=== PATIENT | female | born 1935 | race Caucasian/White ===

== ENCOUNTER 2017-07-21 13:09 | Emergency (ER) ==
[2017-07-21] MEDS ORDERED: SODIUM CHLORIDE 1,000 ML IV STA ×2 (13:19→15:08)
[2017-07-21] MEDS ORDERED: ZOFRAN 4 MG/2 ML IVP STA (13:20)
[2017-07-21] MEDS ORDERED: MORPHINE 2 MG/ML SYRINGE IVP STA (13:28)
[2017-07-21 13:41] VITALS: BP 111/79; TEMP 99.2; BMI 25.4
--- NOTE | 2017-07-21 14:11 | CT ---
EXAM: CT scan abdomen pelvis without contrast HISTORY: Abdominal COMPARISON: CT scan abdomen pelvis 12/11/2014 FINDINGS: The contiguous axial images obtained through the abdomen pelvis without contrast utilizing 3-mm collimation. Sagittal and coronal reconstructions were imaged and reviewed.. The visualized l forrest bases are clear. There has been prior cholecystectomy. The liver, pancreas, spleen and adrenal glands have normal unenhanced CT appearance. The kidneys morphologically normal. Atherosclerotic ch anges are seen involving the aorta without aneurysm formation.. There is diverticulosis without dive rticulitis. There has been prior hysterectomy. There is no free fluid or inflammatory changes. The IMPRESSION: Status post cholecystectomy hysterectomy. ASVD without aneurysm. No evidence of free fluid or inflammatory changes.
--- NOTE | 2017-07-21 16:15 | ED.PDOC ---
General ED Provider: Dr. FRANKY MAJOR-ER Chief Complaint: Nausea/Vomiting Stated Complaint: shes had nonbloody diarrhea and vomiting Time Seen by Physician: 13:30 Mode of Arrival: Walk-In Information Source: Patient, Other Exam Limitations: Other (speech from cva) Primary Care Provider: FRANKY MAJOR Nursing and Triage Documentation Reviewed and Agree: Yes Reviewed sepsis parameters & appropriate labs ordered?: Yes System Inflammatory Response Syndrome: Not Applicable Sepsis Protocol: For patient's 13 years and over: Temp is 96.8 and below OR 101 and greater Pulse >90 BPM Resp >20/minute Acutely Altered Mental Status Are patient's symptoms suggestive of a new infection, such as: -Pneumonia -Skin, Soft Tissue -Endocarditis -UTI -Bone, Joint Infection -Implantable Device -Acute Abdominal Infection -Wound Infection -Meningitis -Blood Stream Catheter Infection -Unknown GI Complaint Exam - Vomiting/Diarrhea Complaint/Exam Onset/Duration: several hours Symptoms Are: Still present Initial Severity: Mild Current Severity: Mild Character of Vomiting: Reports: Non-bilious Character of Diarrhea: Reports: Watery Aggravating: Reports: None Alleviating: Reports: None Associated Signs and Symptoms: Denies: Dizziness, Light-headedness, Melena, Hematemesis, Fever, Abdominal pain, Cramping Kussmaul Respirations Present: No Differential Diagnoses: Bowel Obstruction, Dehydration, Viral Gastroenteritis, Bacterial Gastroenteritis, UTI Review of Systems - Review Of Systems Constitutional: Reports: No symptoms Eyes: Reports: No symptoms Ears, Nose, Mouth, Throat: Reports: No symptoms Respiratory: Reports: No symptoms Cardiac: Reports: No symptoms GI: Reports: Diarrhea, Nausea, Vomiting : Reports: No symptoms Musculoskeletal: Reports: No symptoms Skin: Reports: No symptoms Neurological: Reports: No symptoms Endocrine: Reports: No symptoms Hematologic/Lymphatic: Reports: No symptoms All Other Systems: Reviewed and Negative Past Medical History - Past Medical History Previously Healthy: No Endocrine: Reports: None Cardiovascular: Reports: None Respiratory: Reports: Unknown Hematological: Reports: Unknown Gastrointestinal: Reports: None Genitourinary: Reports: Unknown Neuro/Psych: Reports: CVA Musculoskeletal: Reports: None Cancer: Reports: Unknown Last Menstrual Period: N/A - Surgical History General Surgical History: Reports: Unknown - Family History Family History: Reports: Unknown - Social History Smoking Status: Former smoker Hx Substance Use: No Alcohol Screening: None Physical Exam - Physical Exam Appearance: Well-appearing, No pain distress, Well-nourished Eyes: KATLYN, EOMI, Conjunctiva clear ENT: Ears normal, Nose normal, Oropharynx normal Neck: Supple Respiratory: Airway patent, Breath sounds clear, Breath sounds equal, Respirations nonlabored Cardiovascular: RRR, Pulses normal, No rub, No murmur GI/: Soft, Nontender, No masses, Bowel sounds normal, No Organomegaly Musculoskeletal: Normal strength, ROM intact, No edema, No calf tenderness Skin: Warm, Dry, Normal color Neurological: Sensation intact, Motor intact, Reflexes intact, Cranial nerves intact, Alert, Oriented Psychiatric: Affect appropriate, Mood appropriate Interpretation - Radiology Interpretation Radiology Interpretation By: Radiologist Radiology Results: Negative Exam Interpreted: CT Scan Re-Evaluation - Re-Evaluation Time of Re-Evaluation: 16:14 Status: Improved (no n or v or diarrhea since being in the e.d.) Vital Signs Stable: Yes Pain Level: 0 Appearance: NAD Lungs: Clear Skin: Warm and Dry Neuro: Alert and Oriented X3 CV: RRR Critical Care Note - Critical Care Note Total Time (mins): 0 Course - Course Hematology/Chemistry: 07/21/17 13:45 07/21/17 13:45 Orders, Labs, Meds: Lab Review 07/21/17 07/21/17 07/21/17 13:45 13:45 13:45 WBC 8.87 RBC 4.39 Hgb 13.8 Hct 41.6 MCV 94.8 MCH 31.4 H MCHC 33.2 RDW Coeff of Shane 12.5 Plt Count 153 Immature Gran % (Auto) 0.5 Neut % (Auto) 78.4 Lymph % (Auto) 13.4 [place] % (Auto) 6.8 Eos % (Auto) 0.6 Baso % (Auto) 0.3 Immature Gran # (Auto) 0.0 Neut # 7.0 H Lymph # 1.2 [place] # 0.6 Eos # 0.1 Baso # 0.0 PT 16.1 H INR 1.60 Sodium 142 Potassium 4.3 Chloride 111 H Carbon Dioxide 26 Anion Gap 9.3 BUN 21 H Creatinine 1.22 Estimated GFR (MDRD) 42.00 BUN/Creatinine Ratio 17.21 Glucose 108 Calcium 9.2 Total Bilirubin 0.5 AST 21 ALT 14 Alkaline Phosphatase 95 Total Protein 6.6 Albumin 3.6 Globulin 3.0 Albumin/Globulin Ratio 1.20 Amylase 61 Lipase 22 Urine Color Urine Clarity Urine pH Ur Specific [place] Urine Protein Urine Glucose (UA) Urine Ketones Urine Blood Urine Nitrite Urine Bilirubin Urine Urobilinogen Ur Leukocyte Esterase Urine Microscopic RBC Urine Microscopic WBC Ur Squamous Epith Cells Urine Bacteria Hyaline Casts Influenza A (Rapid) Influenza B (Rapid) 07/21/17 07/21/17 14:28 15:20 WBC RBC Hgb Hct MCV MCH MCHC RDW Coeff of Shane Plt Count Immature Gran % (Auto) Neut % (Auto) Lymph % (Auto) [place] % (Auto) Eos % (Auto) Baso % (Auto) Immature Gran # (Auto) Neut # Lymph # [place] # Eos # Baso # PT INR Sodium Potassium Chloride Carbon Dioxide Anion Gap BUN Creatinine Estimated GFR (MDRD) BUN/Creatinine Ratio Glucose Calcium Total Bilirubin AST ALT Alkaline Phosphatase Total Protein Albumin Globulin Albumin/Globulin Ratio Amylase Lipase Urine Color Yellow Urine Clarity Clear Urine pH 6.0 Ur Specific [place] 1.020 Urine Protein Negative Urine Glucose (UA) Negative Urine Ketones Negative Urine Blood Negative Urine Nitrite Negative Urine Bilirubin Negative Urine Urobilinogen 1.0 Ur Leukocyte Esterase Trace Urine Microscopic RBC 5-10 Urine Microscopic WBC 5-10 Ur Squamous Epith Cells 2-5 Urine Bacteria 1+ Hyaline Casts 0-2 Influenza A (Rapid) Negative by naat Influenza B (Rapid) Negative by naat Orders Category Date Time Status AMYLASE Stat LAB 07/21/17 13:45 Completed CBC W/ AUTO DIFF Stat LAB 07/21/17 13:45 Completed COMPREHENSIVE METABOLIC PANEL Stat LAB 07/21/17 13:45 Completed FLU A/B MOLECULAR Stat LAB 07/21/17 14:28 Completed LIPASE Stat LAB 07/21/17 13:45 Completed MOLECULAR GROUP A STREP Stat LAB 07/21/17 14:28 Completed PT WITH INR Stat LAB 07/21/17 13:45 Completed URINALYSIS C & S IF INDICATED Stat LAB 07/21/17 15:20 Completed URINE CULTURE Stat LAB 07/21/17 15:20 Received 0.9 % Sodium Chloride [Saline Flush] MEDS 07/21/17 13:19 Ordered 1 syr IVF PRN PRN Morphine Sulfate [Morphine 2 mg/ml Syringe] MEDS 07/21/17 13:28 Discontinued 2 mg IVP ONCE STA Ondansetron HCl/Pf [Zofran 4 mg/2 ml] MEDS 07/21/17 13:20 Discontinued 4 mg IVP ONCE STA Sodium Chloride 0.9% [Sodium Chloride] 1,000 ml MEDS 07/21/17 13:19 Discontinued IV BOLUS Sodium Chloride 0.9% [Sodium Chloride] 1,000 ml MEDS 07/21/17 15:[address] ABDOMEN/PELVIS WO CONTRAST Stat RADS 07/21/17 13:20 Completed Medications Generic Name Dose Route Start Last Admin Trade Name Freq PRN Reason Stop Dose Admin Sodium Chloride 1 syr 07/21/17 13:19 07/21/17 14:18 Saline Flush IVF 1 syr PRN PRN Administration To flush IV Discontinued Medications Generic Name Dose Route Start Last Admin Trade Name Freq PRN Reason Stop Dose Admin Sodium Chloride 1,000 mls @ 1,000 mls/hr 07/21/17 13:19 07/21/17 14:18 Sodium Chloride IV 07/21/17 14:18 1,000 mls/hr BOLUS STA Administration Sodium Chloride 1,000 mls @ 1,000 mls/hr 07/21/17 15:08 07/21/17 15:16 Sodium Chloride IV 07/21/17 16:07 1,000 mls/hr BOLUS STA Administration Morphine Sulfate 2 mg 07/21/17 13:28 07/21/17 14:19 Morphine 2 Mg/Ml Syringe IVP 07/21/17 13:29 2 mg ONCE STA Administration Ondansetron HCl 4 mg 07/21/17 13:20 07/21/17 14:18 Zofran 4 Mg/2 Ml IVP 07/21/17 13:21 4 mg ONCE STA Administration Vital Signs: Temp Pulse Resp BP Pulse Ox 07/21/17 13:26 99.2 F 96 H 16 111/79 94 L Departure - Departure Time of Disposition: 16:15 Disposition: HOME SELF-CARE Discharge Problem: Gastroenteritis Instructions: Enteritis (ED) Condition: Good Pt referred to PMD for follow-up: Yes IPMP verified?: No Additional Instructions: zofran 4mg q 4hrs prn #4---lomotil q 6hrs prn loose stool --call me if any problems Allergies/Adverse Reactions: Allergies Penicillins Adverse Reaction (Verified 09/26/15 12:15) Home Medications: Ambulatory Orders Ascorbate Calcium [Vitamin C] 500 mg PO DAILY 12/26/13 Aspirin [Aspirin EC] 81 mg PO DAILYWM 12/26/13 Atorvastatin Calcium [Lipitor] 10 mg PO DAILY 12/26/13 Levetiracetam [Keppra] 750 mg PO BEDTIME 12/26/13 Docusate Sodium [Dok] 100 mg PO BID 09/26/15 Duloxetine HCl [Cymbalta] 30 mg PO DAILY 09/26/15 Fludrocortisone Acetate 0.1 mg PO DAILY 09/26/15 Midodrine HCl [Midodrine] 2.5 mg PO BID 09/26/15 Tizanidine HCl [Zanaflex] 2 mg PO BID 09/26/15 Zonisamide [Zonegran] 100 mg PO DAILY 09/26/15 Levetiracetam [Keppra] 0.5 tab PO DAILY 07/21/17 Warfarin Sodium [Coumadin] 4 mg PO EVERY OTHER DAY 07/21/17 Warfarin Sodium [Coumadin] 5 mg PO EVERY OTHER DAY 07/21/17 Disposition Discussed With: Patient, Family
== END 2017-07-21 16:51 | disposition home or self-care (01) ==
LOC: ED 13:09
DX: K52.9 Noninfective gastroenteritis and colitis, unspecified (principal); Z86.73 Personal history of transient ischemic attack (TIA), and cerebral infarction without residual deficits; Z79.01 Long term (current) use of anticoagulants; Z79.899 Other long term (current) drug therapy
CPT/HCPCS: 36415; 80053; 81001; 82150; 83690; 85025; 85610; 87086; 87502; 87651; 96361; 96374; 96375; 99283

== ENCOUNTER 2018-08-25 13:20 | Outpatient (CLI) ==
--- NOTE | 2018-08-25 14:00 | US ---
Exam: Davis-scale and color ultrasonographic evaluation of the thyroid. Comparison: None available. Reason for exam: Thyroid nodule. FINDINGS: The right thyroid lobe measures 4.6 x 1.7 x 2.0 cm with normal appearing vascularity. There is a complex appearing nodule in the mid inferior portion of the right thyroid lobe measuring 1 .5 x 1.3 x 1.4 cm without interval vascularity. The isthmus measures 0.4 cm which is within normal limits. The left thyroid lobe measures 4.0 x 1.3 x 1.5 cm with normal appearing vascularity. Impression: Complex appearing nodule in the mid inferior portion of the right thyroid lobe measuring up to 1.5 cm . Recommend endocrine consultation and consider fine-needle aspiration.
== END 2018-08-25 13:21 | disposition home or self-care (01) ==
LOC: RAD 13:20
PROVIDERS: ATTEND Family Medicine
DX: E04.1 Nontoxic single thyroid nodule (principal)

== ENCOUNTER 2018-09-24 13:00 | Outpatient (RCR) ==
--- NOTE | 2018-09-03 09:56 | RS.OPPTEV2 ---
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 History of Condition/Mechanism of Injury:: pt had a CVA , has had therapy at different times. pt has suffered a fall 3 weeks ago sustaining a bruise to R slde of face as well as cut to eyebrow with 4 stitches. Prior Level of Function.....Patient was independent with: ADL's, Ambulation/ Mobility Level of Function: caregiver reports pt dresses self, bathes self and amb without rwx even though she has asked her to and MD recommends. pt states " I don't like it" Functional Limitations: Lifting, Carrying, Bending, Squatting, Ambulation, Community Access/Integration Current Subjective/complaints:: pt states that she will try to use Rwx even though she doesn't like it . Treatment Side (optional): Right *Precautions: fall precautions Medical History Medical History: CVA/TIA, CHF, Arthritis Surgical History: Lumbar Spine Smoking Status: Never smoker Hx Home Medications: azelastine, levetiracetam, zonisamide, docqlace, tizanidine , warfarin, fludrocortisone, aspirin, atorvastatin, midodrine. Patient's Goals: get stronger, walk better Functional Outcome Measure Tinetti: 10 - G Codes & Severity Modifier G Codes & Modifier: n/a Source of G Code score: n/a Observation - Observation Inspection: pt with expressive aphasia demonstrating word finding difficulty, with time pt word choice is appropriate. Does better with decreased external stimuli, caregiver is quick to interrupt and speak for patient. Posture: Forward Head, Rounded Shoulders, Increased Thoracic Kyphosis Handedness: Right Gait - Gait Pattern General Gait Pattern Observation: Ataxic Gait Gait Comments: decreased step length, flexed posture General Range of Motion: LUE WFL'S. BLE WFL'S. RUE shld elbow WFL'S, hand limited due to flex contracture of fingers except thumb and 1st finger. Muscle Strength: LUE 4+/5. RUE shld flex 4-/5, elbow flex/ext 4/5, hand limited due to flex contracture. LLE hip flex 4-/5, knee flex/ext 4+/5, ankle DF/PF 4+/5. RLE hip flex 3+/5, knee flex/ext 4/5, ankle DF/PF 4-/5 Sensation - Sensation Right Upper Extremity: Impaired (n/t RUE since CVA) Left Upper Extremity: Intact/Normal Right Lower Extremity: Impaired (n/t RLE since CVA) Left Lower Extremity: Intact/Normal Balance - Sitting Balance Static Sitting Balance: Good Dynamic Sitting Balance: Fair - Standing Balance Static Standing Balance: Fair Dynamic Standing Balance: Poor - Comments Balance Assessment Comments: tinetti score 10/24 consistent with high risk of falls. gait speed 0.47meters/second consistent with limited community ambulator Interventions - Exercise/Activities/Manual Therapy Exercises/Activities: pt performed isometric hip add, SLR with focus on controlling throughout motion, bridging, LAQ. Manual Therapy: NA HOME EXERCISE PROGRAM: pt given written HEP including isometric hip add, SLR, bridging, LAQ - Charges Timed Code Treatment Minutes: 51 Total Treatment Time: 62 Procedures billed for this date of service:: eval med, ex EVALUATION COMPLEXITY LEVEL EVALUATION COMPLEXITY LEVEL: HISTORY: Medium (CVA, age, falls.), EXAM OF BODY SYSTEMS: Medium (balance, strength, gait, transfers), CLINICAL PRESENTATION: Medium, CLINICAL DECISION MAKING: Medium Assessment Assessment: pt presents with decreased balance, strength as well as gait instability with recent hx of falls. Feel pt would benefit from skilled PT for therex for strengthening, balance as well as gait training with assistive device to decrease risk of falls. Feel pt would benefit from therapy sessions in quiet room with decreased external stimuli from other patients or caregiver. Patient Education: Home Exercise Program, Education of Plan of Care Rehab Potential: Good Short Term Goals Goal #1: pt able to perform initial HEP with cues from caregiver. Goal to be met by: 09/22/18 Goal #2: pt amb in dept with rwx with CGA with improved gait sequencing Goal to be met by: 09/22/18 Goal #3: Improve RLE strength 4/5 Goal to be met by: 09/22/18 Goal #4: Improve dyn stand balance as noted by tinetti score 1624 Goal to be met by: 09/22/18 Plastic Tool Maker Goals Goal #1: pt amb functional distances with AD independently no LOB Goal to be met by: 10/13/18 Goal #2: Improve dyn stand balance as noted by tinetti score Goal to be met by: 10/13/18 Goal #3: Improve gait speed 0.8 meters/sec to be consistent with community ambulator Goal to be met by: 10/13/18 Goal #4: no reports of falls since eval Goal to be met by: 10/13/18 Plan - Treatment to be Provided Procedures: Therapeutic Exercises, Therapeutic Activity, Neuromuscular Rehab, Patient Education Modalities: No Modalities - Treatment Plan Frequency: 2-3x a week Duration: 6 weeks Dates of Long-Term Goals: 10/13/18 Expiration date of current Insurance Approval:: n/a - Treatment Code (1) Impairment of balance Code(s): R26.89 - OTHER ABNORMALITIES OF GAIT AND MOBILITY (2) Gait abnormality Code(s): R26.9 - UNSPECIFIED ABNORMALITIES OF GAIT AND MOBILITY (3) Hemiparesis affecting dominant side as late effect of cerebrovascular accident Code(s): I69.359 - HEMIPLGA FOLLOWING CEREBRAL INFARCTION AFFECTING UNSP SIDE (4) Weakness Code(s): R53.1 - WEAKNESS
--- NOTE | 2018-09-03 15:11 | RS.OPPTDN ---
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 Current Subjective/complaints:: No c/o,has expressive aphasia.She is pleasant and cooperative. *Precautions: fall precautions Interventions - Exercise/Activities/Manual Therapy Exercises/Activities: 45 mins. total of passive prolonged R heel cord stretches ,ankle pumps with red theraband on L ,assisted with R ankle pumps.SAQ's, heelslides and hip abd /adduction ,each ex. with 2.5 # resistance.SLR and bridging.Isometric hip abd/addwithsmall therapy ball between knees. Total minutes of Exercise: 45 Manual Therapy: NA Total minutes of Manual Therapy: 0 HOME EXERCISE PROGRAM: pt given written HEP including isometric hip add, SLR, bridging, LAQ - Charges Timed Code Treatment Minutes: 45 Total Treatment Time: 45 Procedures billed for this date of service:: ex3 Assessment: Patient 's greatest difficulty with the exercises today is due to increased tone as the exercises progress.She is able to hold muscle contractions with moderate resistance in all directions.The R ankle has increased plantar flexion as the reps. progress.She requires extra time to rest for the tone to decrease.She ambulates with using the rollator at a fast pace , but no loss of balance entering the clinic today.We discussed to slow the speed of gait some ,especially with turning or when on uneven terrain for her safety. Patient Education: Education of diagnosis, Body/Joint mechanics, Home Exercise Program, Home Safety, Activity Modification, Education of Plan of Care Short Term Goals Goal #1: pt able to perform initial HEP with cues from caregiver. Goal to be met by: 09/22/18 Goal #2: pt amb in dept with rwx with CGA with improved gait sequencing Goal to be met by: 09/22/18 Progress towards Goal:: Progressing Goal #3: Improve RLE strength 4/5 Goal to be met by: 09/22/18 Goal #4: Improve dyn stand balance as noted by tinetti score Goal to be met by: 09/22/18 Water Resource Consultant Goals Goal #1: pt amb functional distances with AD independently no LOB Goal to be met by: 10/13/18 Goal #2: Improve dyn stand balance as noted by tinetti score Goal to be met by: 10/13/18 Goal #3: Improve gait speed 0.8 meters/sec to be consistent with community ambulator Goal to be met by: 10/13/18 Goal #4: no reports of falls since eval Goal to be met by: 10/13/18 Plan Dates of Penitentiary Goals: 10/13/18 Expiration date of current Insurance Approval:: na PLAN: Cont. skilled PT to increase LE /core strength ,for safer transfers and gait .
--- NOTE | 2018-09-08 16:37 | RS.OTEVAL ---
Subjective Date of Note: 09/03/18 Visit #: 1 Number of visits approved by Insurance: 12 Date of Evaluation: 06/13/15 Payer Source: MEDICARE Date of Onset/Injury/Change in Status: 05/01/15 (Late effect CVA 20+ yrs) Surgery Performed?: No Treatment Diagnosis: (R) side hemiparesis/weakness Treatment Side (optional): Right *Precautions: fall precautions Prior Level of Function.....Patient was independent with: ADL's, Self Care, Work /Vocation, Caregiving, Ambulation/Mobility, Community Integration/Access History of Condition/Mechanism of Injury: Pt sustained CVA over 20+ years ago. Level of Function: Pt is able to complete toileting herself with the LUE. Pt has limited use of the RUE due to the increase in tone of the RUE hand and wrist. Pt is able to button her shirts, angelito and doff her pants during toileting. Pt is independent with walking with a rollator walker. Pt requires verbal cues to complete toileting. The Caregiver makes her go to the bathroom and if she has an accident then she has to take a shower. Functional Limitations: Reaching, Pushing, Lifting, Carrying Current Complaints/Gains: Pt complains of tightness of the right hand and this limits her ability to use the RUE and to use both hands in bilateral tasks. Pt has taut digits in her RUE palm and the nails make indentions in her hand. When patient was reminded to clean her RUE palm due to the RUE smell in her hand, she quickly stated that she cleans her Palm. Medical History Medical History: CVA/TIA, CHF, Arthritis Medical History Comments:: CVA 20+ years ago, Back surgery X2, Surgical History: Lumbar Spine Smoking Status: Never smoker Hx Home Medications: azelastine, levetiracetam, zonisamide, docqlace, tizanidine , warfarin, fludrocortisone, aspirin, atorvastatin, midodrine. Patient's Goals: To use (R) hand better Pain Assessment - Pain Description Pain Description: Tightness, Aching Pain Location: (R) hand with movement Functional Outcome Measures UE Functional Index: 0 - G Codes & Severity Modifier G Codes: . Source of G Code score: . Observation - Observation Posture: Forward Head Handedness: Left Shoulder ROM: Bilaterally WFL's Shoulder Muscle Strength: Bilaterally WFL's - Left Shoulder Strength Left Shoulder Flexion: 4 Good - Right Shoulder Strength Right Shoulder Flexion: 4 Good (Pt has tone in her right wrist and hand.) Palpation Palpation Findings: Tenderness Sensation Right Upper Extremity: Intact/Normal Left Upper Extremity: Intact/Normal Coordination - Tests Right Finger Opposition: Marked/Severe Deviation Finger to Nose: Mild Deviation Modalities - Hot Pack/Cryotherapy Treatment: Hot Pack Interventions - Exercise/Activities Exercise/Activities/Manual Therapy: Pt educated on stretching digits of the right hand to decrease tone and to try to keep the palm of the RUE dry and clean to prevent and odor. Stretching of the RUE to decrease tone. HOME EXERCISE PROGRAM: AROM, stretching/positioning, and thera-putty for hand strengthening. - Charges Timed Code Treatment Minutes: 60 Total Treatment Time: 60 Procedures billed for this date of service:: Evaluation medium, HP, EX EVALUATION COMPLEXITY LEVEL: HISTORY: Medium, EXAM OF BODY SYSTEMS: Medium, CLINICAL DECISION MAKING: Medium Assessment Assessment: Pt has increased tone of the RUE wrist, hand, and digits. Pt has movement of the RUE hand: Index is able to move 35 deg. into extension, MP flexion 0-100 deg, DIP / 10 deg., DIP flexion full. Long digit: MP 90 deg. extension, MP flexion is 95 deg., PIP / is 0-70 deg, DIP 0-90 deg., Ring digit: MP flexion is 75 deg., / is 80 deg., PIP flexion is 0-70 deg., / 0-80 deg., Small digits MP flexion is 105 deg., PIP 0 deg. /, flexion is 0-90 deg. Right wrist / is 0 deg., R wrist flexion is 0-55 deg., full pronation/supination. Pt has expressive dysphagia. Patient Education: Education of diagnosis, Home Exercise Program, Education of Plan of Care Rehab Potential: Good Problems/Comments: Pt has increased tone intermittently. Pt has limited movement of the digits of the right UE. Short Term Goals Goal #1: Pt will decrease pain to 5/10 at worst in (R) hand with movement Goal to be met by: 09/19/18 Goal #2: Pt will increase extension in (R) hand fingers by 20 deg. Goal to be met by: 09/19/18 Goal #3: Pt will increase RUE wrist extension 30 deg. Goal to be met by: 09/19/18 Loan Associate Goals Goal #1: Pt will decrease pain to 0 in (R) hand with movement Goal to be met by: 10/03/18 Goal #2: Pt will increase extension in (R) hand fingers to 45 deg. Goal to be met by: 10/03/18 Goal #3: Pt will increase RUE wrist extension 45 deg. Goal to be met by: 10/03/18 Plan - Treatment to be provided Procedures: Therapeutic Exercises, Therapeutic Activity, Manual Therapy, Massage , Patient Education Modalities: Electrical Stimulation, Ultrasound/Phonophoresis, Class IV Laser, Cryotherapy, Hot Packs - Treatment Plan Frequency: 3 X week Duration: 4 weeks Dates of Loan Associate Goals: 10/03/18 Expiration date of current Insurance Approval:: 09/28/18 - Treatment Code (1) Muscle weakness of right upper extremity Code(s): M62.81 - MUSCLE WEAKNESS (GENERALIZED) Comments: M62.81 Muscle weakness of RUE. (2) Abnormally increased muscle contraction Code(s): M62.9 - DISORDER OF MUSCLE, UNSPECIFIED Comments: M62.9 Abnormal contracted muscle. (3) Abnormal coordination Code(s): R27.8 - OTHER LACK OF COORDINATION Comments: R27.8 Lack of coordination.
--- NOTE | 2018-09-09 14:05 | RS.OPPTDN ---
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 Current Subjective/complaints:: No c/o,reports no recent falls since beginnig therapy. *Precautions: fall precautions Interventions - Exercise/Activities/Manual Therapy Exercises/Activities: 55 mins. total of passive prolonged R heel cord stretches ,ankle pumps with red theraband on L ,assisted with R ankle pumps.SAQ's, heelslides and hip abd /adduction ,each ex. with 2.5 # resistance.Bilateral leg press,09/12 @ 60 #.Balance exercises of weaving around cones on floor with gait belt and min. assist of 1,reaching and placing cones on floor with CGA of 1. Total minutes of Exercise: 55 Manual Therapy: NA Total minutes of Manual Therapy: 0 HOME EXERCISE PROGRAM: pt given written HEP including isometric hip add, SLR, bridging, LAQ - Charges Timed Code Treatment Minutes: 55 Total Treatment Time: 55 Procedures billed for this date of service:: ex 2,NMR 2 Assessment: Patient has steadier transfers and improved gait pattern today.She is able to ambulate without the rollator for short distance without loss of balance.She also has better speed of gait with less cues today. Patient Education: Education of diagnosis, Body/Joint mechanics, Home Exercise Program, Home Safety, Activity Modification, Education of Plan of Care Patient demonstrates compliance with HEP?: Yes Short Term Goals Goal #1: pt able to perform initial HEP with cues from caregiver. Goal to be met by: 09/22/18 Goal #2: pt amb in dept with rwx with CGA with improved gait sequencing Goal to be met by: 09/22/18 Progress towards Goal:: Progressing Goal #3: Improve RLE strength 4/5 Goal to be met by: 09/22/18 Progress towards Goal:: Progressing Goal #4: Improve dyn stand balance as noted by tinetti score Goal to be met by: 09/22/18 Chcf Goals Goal #1: pt amb functional distances with AD independently no LOB Goal to be met by: 10/13/18 Progress towards goal: Progressing Goal #2: Improve dyn stand balance as noted by tinetti score Goal to be met by: 10/13/18 Goal #3: Improve gait speed 0.8 meters/sec to be consistent with community ambulator Goal to be met by: 10/13/18 Goal #4: no reports of falls since eval Goal to be met by: 10/13/18 Progress towards goal: Progressing Plan Dates of Ammonia Refrigeration Technician Goals: 10/13/18 Expiration date of current Insurance Approval:: na PLAN: Cont. PT to maximize LE/trunk strength for safr mobility on all surfaces.
--- NOTE | 2018-09-09 15:33 | RS.OTDNOTE ---
Subjective Date of Note: 09/09/18 Visit #: 2 Number of visits approved by Insurance: 12 Date of Evaluation: 06/13/15 Payer Source: MEDICARE Treatment Diagnosis: (R) side hemiparesis/weakness *Precautions: fall precautions Pain Assessment - Pain Description Pain Description: Tightness, Aching Pain Location: (R) hand with movement Modalities - Hot Pack/Cryotherapy Treatment: Hot Pack Comments:: Prior to PROM Interventions - Exercise/Activities Exercise/Activities/Manual Therapy: Gentle prolonged stretching/MT of digits and wrist performed along with WB act. Pt ed on HEP, WB, and use of splint. 1 # neelam bar ex's, red t-putty, wrist surveying technician, and gradded digi-flex ex also performed. HOME EXERCISE PROGRAM: AROM, stretching/positioning, and thera-putty for hand strengthening. - Objective Findings Objective Findings:: GS increased to 20# - Charges Timed Code Treatment Minutes: 48 Total Treatment Time: 56 Procedures billed for this date of service:: HP MT2 EX Assessment Patient Education: Education of diagnosis, Body/Joint mechanics, Home Exercise Program, Home Safety, Activity Modification, Education of Plan of Care Patient demonstrates compliance with HEP?: Yes Short Term Goals Goal #1: Pt will decrease pain to 5/10 at worst in (R) hand with movement Goal to be met by: 09/19/18 Progress towards goal: Progressing Goal #2: Pt will increase extension in (R) hand fingers by 20 deg. Goal to be met by: 09/19/18 Progress towards goal: Progressing Goal #3: Pt will increase RUE wrist extension 30 deg. Goal to be met by: 09/19/18 Progress towards goal: Progressing Mcfp Goals Goal #1: Pt will decrease pain to 0 in (R) hand with movement Goal to be met by: 10/03/18 Progress towards goal: Progressing Goal #2: Pt will increase extension in (R) hand fingers to 45 deg. Goal to be met by: 10/03/18 Progress towards goal: Progressing Goal #3: Pt will increase RUE wrist extension 45 deg. Goal to be met by: 10/03/18 Progress towards goal: Progressing Plan Dates of Pecan Cleaner Goals: 10/03/18 Expiration date of current Insurance Approval:: 10/03/18 PLAN: Continue per POC. Pt given picture and split ed along with HEP of gentle stretching and WB act.
--- NOTE | 2018-09-12 14:05 | RS.OPPTDN ---
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 Current Subjective/complaints:: Patient pleasant and motivated ,she is occasional tearful due to pain in the R hand today,has flexion contracture and increased tone today. *Precautions: fall precautions Pain Assessment - Pain Description Pain Location: R hand Pain Description: Chronic Current Pain Intensity: not rated Other Comments regarding Pain:: due to hypertonus Interventions - Exercise/Activities/Manual Therapy Exercises/Activities: 50 mins. total of passive prolonged R heel cord stretches ,ankle pumps with red theraband on L ,assisted with R ankle pumps.SAQ's, heelslides and hip abd /adduction ,each ex. with 2.5 # resistance.Bilateral leg press,09/12 @ 75 #.Gait in gym for 50 ' without assistive device and min.assist of 1,then 50 ' with CGA when using the rollator. Total minutes of Exercise: 50 Manual Therapy: NA Total minutes of Manual Therapy: 0 HOME EXERCISE PROGRAM: pt given written HEP including isometric hip add, SLR, bridging, LAQ - Charges Timed Code Treatment Minutes: 50 Total Treatment Time: 50 Procedures billed for this date of service:: ex3 Assessment: Patient has increased LE strength ,able to increase the resistance today with no report of knee pain.The tone in the R LE is less today with exercises and gait,but the RUE tone is elevated today,decreases with gentle stretch and cues to rest.She is also being seen by OT today.She continues to be motivated and attentive. Patient Education: Education of diagnosis, Body/Joint mechanics, Home Exercise Program, Home Safety, Activity Modification, Education of Plan of Care Patient demonstrates compliance with HEP?: Yes Short Term Goals Goal #1: pt able to perform initial HEP with cues from caregiver. Goal to be met by: 09/22/18 Goal #2: pt amb in dept with rwx with CGA with improved gait sequencing Goal to be met by: 09/22/18 Progress towards Goal:: Progressing Goal #3: Improve RLE strength 4/5 Goal to be met by: 09/22/18 Progress towards Goal:: Progressing Goal #4: Improve dyn stand balance as noted by tinetti score Goal to be met by: 09/22/18 Progress towards Goal:: Progressing Intermediate Goals Goal #1: pt amb functional distances with AD independently no LOB Goal to be met by: 10/13/18 Progress towards goal: Progressing Goal #2: Improve dyn stand balance as noted by tinetti score Goal to be met by: 10/13/18 Goal #3: Improve gait speed 0.8 meters/sec to be consistent with community ambulator Goal to be met by: 10/13/18 Goal #4: no reports of falls since eval Goal to be met by: 10/13/18 Progress towards goal: Progressing Plan Dates of Lithopress Operator Goals: 10/13/18 Expiration date of current Insurance Approval:: na PLAN: Cont. skilled PT to increase LE strength ,resulting in safer transfers and gait.
--- NOTE | 2018-09-17 14:05 | RS.OPPTDN ---
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 Current Subjective/complaints:: Patient is pleasant and motivated . *Precautions: fall precautions Interventions - Exercise/Activities/Manual Therapy Exercises/Activities: 55 mins. total of passive prolonged R heel cord stretches ,ankle pumps with red theraband on L ,assisted with R ankle pumps.SAQ's, heelslides and hip abd /adduction ,each ex. with 2.5 # resistance.Gait training with R/W ,CGA of 1 for 250' x 2,up /down steps with 2 rails and CGA .3/15 on bilateral leg press @ 75 #. Total minutes of Exercise: 55 Manual Therapy: NA Total minutes of Manual Therapy: 0 HOME EXERCISE PROGRAM: pt given written HEP including isometric hip add, SLR, bridging, LAQ - Charges Timed Code Treatment Minutes: 55 Total Treatment Time: 55 Procedures billed for this date of service:: ex 2,NMR,gait Assessment: Patient has increased step length ,steadier transfers and gait today.She also requires less assist for sit to stand.She has no loss of balance on steps forward or laterally. Patient Education: Body/Joint mechanics, Home Safety, Education of Plan of Care Short Term Goals Goal #1: pt able to perform initial HEP with cues from caregiver. Goal to be met by: 09/22/18 Goal #2: pt amb in dept with rwx with CGA with improved gait sequencing Goal to be met by: 09/22/18 Progress towards Goal:: Progressing Goal #3: Improve RLE strength 4/5 Goal to be met by: 09/22/18 Progress towards Goal:: Progressing Goal #4: Improve dyn stand balance as noted by tinetti score Goal to be met by: 09/22/18 Progress towards Goal:: Progressing Machine Tool Designer Goals Goal #1: pt amb functional distances with AD independently no LOB Goal to be met by: 10/13/18 Progress towards goal: Progressing Goal #2: Improve dyn stand balance as noted by tinetti score Goal to be met by: 10/13/18 Goal #3: Improve gait speed 0.8 meters/sec to be consistent with community ambulator Goal to be met by: 10/13/18 Goal #4: no reports of falls since eval Goal to be met by: 10/13/18 Progress towards goal: Progressing Plan Dates of Senior Care Goals: 10/13/18 Expiration date of current Insurance Approval:: na PLAN: Cont. PT to strengthen the LE's for safe mobiity on all surfaces.
--- NOTE | 2018-09-17 15:42 | RS.OTDNOTE ---
Subjective Date of Note: 09/17/18 Visit #: 4 Number of visits approved by Insurance: 12 Date of Evaluation: 06/13/15 Payer Source: MEDICARE Treatment Diagnosis: (R) side hemiparesis/weakness *Precautions: fall precautions Current Complaints/Gains: Pt complains that she cannot use her RUE like she can the LUE. Pain Assessment - Pain Description Pain Description: Tightness, Aching Pain Location: (R) hand with movement Current Pain Intensity: not able to rate. Modalities - Hot Pack/Cryotherapy Treatment: Hot Pack Interventions - Exercise/Activities Exercise/Activities/Manual Therapy: Gentle prolonged stretching/MT of digits and wrist performed along with WB act. Pt ed on HEP, WB, and use of splint. Yellow putty for extension of RUE digits: Pushing digits into extension. HOME EXERCISE PROGRAM: AROM, stretching/positioning, and thera-putty for hand strengthening. - Charges Timed Code Treatment Minutes: 62 Total Treatment Time: 62 Procedures billed for this date of service:: HP, MT x 2, TA Assessment Problems/Comments: Caregiver blaming things on the patient. Caregiver and patient educated on how to put the splint on the patient's RUE. Caregiver instructed to start for 1 hour at a time. and work up slowly to being able to sleep in the splint at night. Patient demonstrates compliance with HEP?: Yes Short Term Goals Goal #1: Pt will decrease pain to 5/10 at worst in (R) hand with movement Goal to be met by: 09/19/18 Progress towards goal: Progressing Goal #2: Pt will increase extension in (R) hand fingers by 20 deg. Goal to be met by: 09/19/18 Progress towards goal: Progressing Goal #3: Pt will increase RUE wrist extension 30 deg. Goal to be met by: 09/19/18 Progress towards goal: Progressing Jail Goals Goal #1: Pt will decrease pain to 0 in (R) hand with movement Goal to be met by: 10/03/18 Progress towards goal: Progressing Goal #2: Pt will increase extension in (R) hand fingers to 45 deg. Goal to be met by: 10/03/18 Progress towards goal: Progressing Goal #3: Pt will increase RUE wrist extension 45 deg. Goal to be met by: 10/03/18 Progress towards goal: Progressing Plan Dates of Insurance Writer Goals: 10/03/18 Expiration date of current Insurance Approval:: 10/03/18 PLAN: OT to continue to work with patient on extension exercises of the LUE digits. Provide progressive stretching of the LUE digits. Strengthen extensors of the LUE. Continue to educate patient and caregiver to apply the resting hand splint.
--- NOTE | 2018-09-18 08:43 | RS.OTDNOTE ---
Subjective Date of Note: 09/12/18 Visit #: 3 Number of visits approved by Insurance: 12 Date of Evaluation: 06/13/15 Payer Source: MEDICARE Treatment Diagnosis: (R) side hemiparesis/weakness *Precautions: fall precautions Current Complaints/Gains: Pt states she has been exercising and stretching her hand and demo on table-top. Splint donned x 10 mins with pt instructed on wearing schedule. Pt became unable to speak and patted her chest. PB taken x2. Pt states she has "episode like that" and states it was a seizure. Pain Assessment - Pain Description Pain Description: Tightness, Aching Pain Location: (R) hand with movement Modalities - Hot Pack/Cryotherapy Treatment: Hot Pack Comments:: HP x 15 mins prior to TE. Interventions - Exercise/Activities Exercise/Activities/Manual Therapy: Gentle prolonged stretching/MT of digits and wrist performed along with WB act. Pt ed on HEP, WB, and use of splint. 1 # neelam bar (B) UE ex's, wrist brass sorter, and B UE AROM PRE's ed performed. HOME EXERCISE PROGRAM: AROM stretching/positioning - Objective Findings Objective Findings:: GS 20# - Charges Timed Code Treatment Minutes: 34 Total Treatment Time: 49 Procedures billed for this date of service:: HP MT2 Assessment Patient Education: Education of diagnosis, Body/Joint mechanics, Home Exercise Program, Home Safety, Activity Modification, Education of Plan of Care Patient demonstrates compliance with HEP?: Yes Short Term Goals Goal #1: Pt will decrease pain to 5/10 at worst in (R) hand with movement Goal to be met by: 09/19/18 Progress towards goal: Progressing Goal #2: Pt will increase extension in (R) hand fingers by 20 deg. Goal to be met by: 09/19/18 Progress towards goal: Progressing Goal #3: Pt will increase RUE wrist extension 30 deg. Goal to be met by: 09/19/18 Progress towards goal: Progressing Cut Off Sawyer Log Goals Goal #1: Pt will decrease pain to 0 in (R) hand with movement Goal to be met by: 10/03/18 Progress towards goal: Progressing Goal #2: Pt will increase extension in (R) hand fingers to 45 deg. Goal to be met by: 10/03/18 Progress towards goal: Progressing Goal #3: Pt will increase RUE wrist extension 45 deg. Goal to be met by: 10/03/18 Progress towards goal: Progressing Plan Dates of Longterm Goals: 10/03/18 Expiration date of current Insurance Approval:: 10/03/18 PLAN: Cont per POC to max functional UE AROM and splint wear schedule with CG ed for donning splint.
--- NOTE | 2018-09-18 16:50 | RS.SP/LANG ---
Subjective Number of treatment sessions: 1 Date of Evaluation: 09/18/18 Date of Onset/Injury/Change in Status: 05/31/18 (Noted change in speech) Treatment Diagnosis: Aphasia Current Level of Function: This 83 year old female lives with her caregiver whom assists with ADLs. The patient has a hx of CVA in 1993 with residual right side weakness and speech deficits. However, in May 2018, the pt had a seizure and UTI that affected her speech processing, word finding skills, and cognitive function, all impairing her functional communication skills. Current Subjective/complaints:: The patient reports difficulty with finding words during structured conversation, but it improves in her spontaneous speech utterances. The caregiver reports moderate-severe perseveration, moderate delay with speech processing, moderate-severe difficulty with naming and word finding skills, and difficulty with "thinking". Medical History Comments:: CVA, seizures, UTI Patient's Goals: Pt wants to "get better." Caregiver wants to address word finding skills and decrease speech processing to increase functional communication skills. Information History:: The patient had a CVA in 1993. Residual deficits were noted with speech production and right side weakness. The patient was diagnosed with dehydration, seizures, and UTI in May 2018, which decreased functional communication skills. Informal Assessment:: The patient was assessed with the [place] Naming test. The first ten items were administered and took 15-20 minutes to complete. The patient was provided semantic, phonemic, multiple choice, and phrase completion cueing techniques to produce names of pictured stimuli. The patient named 20% of the items independently, and required phonemic cueing for 20% of the items, phrase completion for 10% of the items, and multiple choice for 50% of the items to produce the answer. Formal/Objective Assessment:: The SLUMS was completed and the patient scored 8/ 30, indicating dementia level. The patient had difficuty with orientation, memory recall, simple mathematics, naming, mental flexibility, and auditory recall. The MANAGER PLAN attributes some of her language difficulty to the memory recall , orientation, and naming deficits. The other areas are determined by cognitive decline. Analysis:: The patient was assessed in two areas, expressive language and cognitive function. Both areas reveal a severe deficits. For expressive language , the patient demonstrates, circumlocution, verbal perseveration, stuttering, verbal repetition, moderate delay in response, and severe-profound difficulty with naming items. For cognitive skills, the patient demonstrates moderate difficulty with orientation, severe difficulty with mathematics, profound difficulty with memory recall and semantic naming, severe difficulty with mental flexibility, and moderate difficulty with auditory recall. Summary and Recommendations:: The MANAGER PLAN recommends skilled ST to address both areas of expressive langauge and cognition. Primary therapy will focus on language using Semantic feature analysis methods to increase verbal naming skills in functional communication. Secondary therapy will address cognitive function with emphasis on mental flexibility and memory recall. Functional Reporting G Codes: N/A Severity Impairment Rationale: N/A Short Term Goals Problem: word finding Goal #1: Pt to name given words using SFA techniques with 50% acc. Goal to be met by: 12/04/18 Problem: Speech processing Goal #2: Pt to respond to structured questions with 2-4 second delay Goal to be met by: 12/04/18 Problem: Cognition-memory recall Goal #3: Pt to demonstrate delayed recall of items with 50% acc. Goal to be met by: 11/12/18 Residency Director Goals Problem: Verbal recall Goal #1: Pt to recall words in functional comm with 50% acc Goal to be met by: 12/04/18 Problem: Cognitive function Goal #2: Pt to demonst. moderate cognitive deficits w/i struct. 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
--- NOTE | 2018-09-19 14:29 | RS.OPPTDN ---
Subjective Date of Note: 09/19/18 Visit #: 6 Number of visits approved by Insurance: na Date of Evaluation: 09/01/18 Payer Source: MEDICARE Treatment Diagnosis: Aphasia Current Subjective/complaints:: No c/o,pleasant and motivared. *Precautions: fall precautions Interventions - Exercise/Activities/Manual Therapy Exercises/Activities: 55 mins. total ,including balance exercises walking around cones on floor with gait belt and hand hold assist of1,then picking up cones from the floor to her L and R .Sit to stand x 5.Bilateral leg press,3.15 @ 75# with seat closer than last session.Gait training with gait belt only for 50' x 2. Total minutes of Exercise: 55 Manual Therapy: NA Total minutes of Manual Therapy: 0 HOME EXERCISE PROGRAM: pt given written HEP including isometric hip add, SLR, bridging, LAQ - Charges Timed Code Treatment Minutes: 55 Total Treatment Time: 60 Procedures billed for this date of service:: ex 2,NMR,gait Assessment: Patient requires less assist for all activities today,steadier transfers and gait .She has no loss of balance today with picking up objects from the floor.She is very attentive and motivated to improve. Patient Education: Education of diagnosis, Body/Joint mechanics, Home Exercise Program, Home Safety, Activity Modification, Education of Plan of Care Patient demonstrates compliance with HEP?: Yes Short Term Goals Goal #1: pt able to perform initial HEP with cues from caregiver. Goal to be met by: 09/22/18 Progress towards Goal:: Progressing Goal #2: pt amb in dept with rwx with CGA with improved gait sequencing Goal to be met by: 09/22/18 Progress towards Goal:: Progressing Goal #3: Improve RLE strength 4/5 Goal to be met by: 09/22/18 Progress towards Goal:: Progressing Goal #4: Improve dyn stand balance as noted by tinetti score Goal to be met by: 09/22/18 Progress towards Goal:: Progressing Fpc Goals Goal #1: pt amb functional distances with AD independently no LOB Goal to be met by: 10/13/18 Progress towards goal: Progressing Goal #2: Improve dyn stand balance as noted by tinetti score Goal to be met by: 10/13/18 Goal #3: Improve gait speed 0.8 meters/sec to be consistent with community ambulator Goal to be met by: 10/13/18 Goal #4: no reports of falls since eval Goal to be met by: 10/13/18 Progress towards goal: Progressing Plan Dates of Fpc Goals: 10/13/18 Expiration date of current Insurance Approval:: na PLAN: Cont skilled PT to improve dynamic balance for safe gait on all surfaces.
--- NOTE | 2018-09-19 15:14 | RS.OTDNOTE ---
Subjective Date of Note: 09/19/18 Visit #: 5 Number of visits approved by Insurance: 12 Date of Evaluation: 06/13/15 Payer Source: MEDICARE Treatment Diagnosis: (R) side hemiparesis/weakness *Precautions: fall precautions Current Complaints/Gains: Pt complains of bruising on the Right forearm and then she indicated that she tightens her splint it too much. Pain Assessment - Pain Description Pain Description: Tightness, Aching Pain Location: (R) hand with movement Pain Description: 0 Current Pain Intensity: 0 Modalities - Treatment Modality: Ultrasound Parameters/Method Applied: .4 w/cm2 for 8 minutes after setup Treatment Area: RUE dorsal hand/ventral hand to increase extension of digits. Patient Position: Sitting - Hot Pack/Cryotherapy Treatment: Hot Pack Interventions - Exercise/Activities Exercise/Activities/Manual Therapy: Gentle prolonged stretching/MT of digits and wrist performed along with WB act. Pt ed on HEP, WB, and use of splint. (B ) UE ex's, wrist materials engineer, and B UE AROM PRE's ed performed. HOME EXERCISE PROGRAM: AROM stretching/positioning - Charges Timed Code Treatment Minutes: 60 Total Treatment Time: 60 Procedures billed for this date of service:: HP, US, MTx2 Assessment Assessment: Pt's RUE digits are slowly improving in extension of her digits due to therapy and her home program and the splinting of the RUE. Patient Education: Education of diagnosis, Education of Plan of Care Problems/Comments: Bruising to the RUE forearm. Patient demonstrates compliance with HEP?: Yes Short Term Goals Goal #1: Pt will decrease pain to 5/10 at worst in (R) hand with movement Goal to be met by: 09/19/18 Progress towards goal: Progressing Goal #2: Pt will increase extension in (R) hand fingers by 20 deg. Goal to be met by: 09/19/18 Progress towards goal: Progressing Goal #3: Pt will increase RUE wrist extension 30 deg. Goal to be met by: 09/19/18 Progress towards goal: Progressing Longterm Goals Goal #1: Pt will decrease pain to 0 in (R) hand with movement Goal to be met by: 10/03/18 Progress towards goal: Progressing Goal #2: Pt will increase extension in (R) hand fingers to 45 deg. Goal to be met by: 10/03/18 Progress towards goal: Progressing Goal #3: Pt will increase RUE wrist extension 45 deg. Goal to be met by: 10/03/18 Progress towards goal: Progressing Plan Dates of Director Private Goals: 10/03/18 Expiration date of current Insurance Approval:: 10/13/18 PLAN: Continue with OT to increase extension of digits of RUE hand. To decrease tone in RUE.
--- NOTE | 2018-09-22 14:20 | RS.SLTREAT ---
Speech/Language Treatment Note Date of Note: 09/22/18 Visit #: 2 Time of Treatment: 13:00 Subjective: The patient did not report any concerns. She was eager about starting speech therapy. The patient verbalized motivation to try new methods for speech retrieval. The MOTION PICTURE EQUIPMENT MACHINIST noted she had less difficulty in spontaneous conversation with word finding. However, she continued to demonstrate moderate- severe perseverations and circumlocutions. Total treatment time: 45 - Short Term Goals Goal #1: Pt to name given words using SFA techniques with 50% acc. Activity/Accuracy: Pt named 3/4 with SFA and phonemic cueing. She named 1/4 with SFA method only. The patient required all five SFA categories to name single words with picture cues. Goal #2: Pt to respond to structured questions with 2-4 second delay Goal #3: Pt to demonstrate delayed recall of items with 50% acc. Activity/Accuracy: Pt recalled 3/4 items from SFA trials with moderate verbal cues and 2/4 independently. - Audit Lead Goals Goal #1: Pt to recall words in functional comm with 50% acc Goal #2: Pt to demonst. moderate cognitive deficits w/i struct. tasks Assessment: The patient was provided education and trainign with all five categories within the SFA method. She required consistent cueing to reduce tangential thoughts and speech outbursts or verbal perseveration. However, after three trials with the technique she verbally produced a single word that she could not produce without the SFA cueing methods. - Units Charged Speech Therapy: 3 Swallowing Therapy: 0 - Plan Comments: Continue SFA training.
--- NOTE | 2018-09-22 16:09 | RS.OPPTDN ---
Subjective Date of Note: 09/22/18 Visit #: 7 Number of visits approved by Insurance: na Date of Evaluation: 09/01/18 Payer Source: MEDICARE Treatment Diagnosis: Aphasia Current Subjective/complaints:: No c/o,pleasant and motivated. *Precautions: fall precautions Interventions - Exercise/Activities/Manual Therapy Exercises/Activities: 50 mins. total ,beginning with 10 mins. on exercise bike , followed by 3/15 seated hip abd/adduction ,hams. curls with red t-band , bilateral leg press 07/15 @ 75#,08/15 @ 90 #.Standing balance of side -steps,back steps with CGA of 1 ,using rolling walker. Total minutes of Exercise: 50 Manual Therapy: NA Total minutes of Manual Therapy: 0 HOME EXERCISE PROGRAM: pt given written HEP including isometric hip add, SLR, bridging, LAQ - Charges Timed Code Treatment Minutes: 40 Total Treatment Time: 50 Procedures billed for this date of service:: ex 3 Assessment: Progressing ,has increased quads and hamstring strength,tolerates eccentric motions on leg press with better control,which also improves her stand to sit transfers.Her standing posture is moreerct and has increased step length with less cues . Patient Education: Education of diagnosis, Body/Joint mechanics, Home Exercise Program, Home Safety, Activity Modification, Education of Plan of Care Patient demonstrates compliance with HEP?: Yes Short Term Goals Goal #1: pt able to perform initial HEP with cues from caregiver. Goal to be met by: 09/22/18 Progress towards Goal:: Progressing Goal #2: pt amb in dept with rwx with CGA with improved gait sequencing Goal to be met by: 09/22/18 Progress towards Goal:: Met Goal #3: Improve RLE strength 4/5 Goal to be met by: 09/22/18 Progress towards Goal:: Progressing Goal #4: Improve dyn stand balance as noted by tinetti score Goal to be met by: 09/22/18 Progress towards Goal:: Progressing Geographic Information Scientist Goals Goal #1: pt amb functional distances with AD independently no LOB Goal to be met by: 10/13/18 Progress towards goal: Progressing Goal #2: Improve dyn stand balance as noted by tinetti score Goal to be met by: 10/13/18 Goal #3: Improve gait speed 0.8 meters/sec to be consistent with community ambulator Goal to be met by: 10/13/18 Goal #4: no reports of falls since eval Goal to be met by: 10/13/18 Progress towards goal: Progressing Plan Dates of Assisted Goals: 10/13/18 Expiration date of current Insurance Approval:: na PLAN: Cont. skilled PT ,strengthen the LE's ,resulting in safer ADL's,including gait on all surfaces.
--- NOTE | 2018-09-24 08:26 | RS.OTDNOTE ---
Subjective Date of Note: 09/22/18 Visit #: 6 Number of visits approved by Insurance: 12 Date of Evaluation: 06/13/15 Payer Source: MEDICARE Treatment Diagnosis: (R) side hemiparesis/weakness *Precautions: fall precautions Current Complaints/Gains: Pt states good compliance with continued hand stretching ex's and donning splint. No new brusing noted from tight straps, continued ed for donning schedule. Pain Assessment - Pain Description Pain Description: Tightness, Aching Pain Location: (R) hand with movement Current Pain Intensity: 2 Worst Pain Intensity: 6 Modalities - Treatment Modality: Ultrasound Parameters/Method Applied: .04w/cm2 x 10 mins - Hot Pack/Cryotherapy Treatment: Hot Pack Comments:: x15 mins Interventions - Exercise/Activities Exercise/Activities/Manual Therapy: Gentle prolonged stretching/MT of digits and wrist performed along with WB act. Pt ed on HEP, WB, and use of splint. (B ) UE ex's, wrist career transition specialist, and B UE AROM PRE's ed performed. HOME EXERCISE PROGRAM: AROM stretching/positioning - Objective Findings Objective Findings:: GS 20# - Charges Timed Code Treatment Minutes: 35 Total Treatment Time: 49 Procedures billed for this date of service:: HP US MT Assessment Patient Education: Education of diagnosis, Body/Joint mechanics, Home Exercise Program, Home Safety, Activity Modification, Education of Plan of Care Patient demonstrates compliance with HEP?: Yes Short Term Goals Goal #1: Pt will decrease pain to 5/10 at worst in (R) hand with movement Goal to be met by: 09/19/18 Progress towards goal: Progressing Goal #2: Pt will increase extension in (R) hand fingers by 20 deg. Goal to be met by: 09/19/18 Progress towards goal: Progressing Goal #3: Pt will increase RUE wrist extension 30 deg. Goal to be met by: 09/19/18 Progress towards goal: Progressing Rn Labor Delivery Goals Goal #1: Pt will decrease pain to 0 in (R) hand with movement Goal to be met by: 10/03/18 Progress towards goal: Progressing Goal #2: Pt will increase extension in (R) hand fingers to 45 deg. Goal to be met by: 10/03/18 Progress towards goal: Progressing Goal #3: Pt will increase RUE wrist extension 45 deg. Goal to be met by: 10/03/18 Progress towards goal: Progressing Plan Dates of Rn Labor Delivery Goals: 10/03/18 Expiration date of current Insurance Approval:: 10/03/18 PLAN: Continue per POC to max functional hand use.
--- NOTE | 2018-09-24 14:05 | RS.OPPTDN ---
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 *Precautions: fall precautions Interventions - Exercise/Activities/Manual Therapy Exercises/Activities: 44mins. Bilateral leg press 2s/15reps @ 75#, 3s/15reps @ 90#. Red theraband resisted hip abd/adduction 4s/10reps and ham curls 3s/ 15reps. Alt hip flexion 2s/10reps. Sit to stand 5reps without stop. Standing balance of side -steps with HOTEL DESK CLERK, back steps with CGA of 1 ,using rolling walker. Walking around cones with HOTEL DESK CLERK and patient picks up cones from floor with assist at gait belt. Side-stepping at handrail. Total minutes of Exercise: EX 24mins, NEURO 20mins Manual Therapy: NA HOME EXERCISE PROGRAM: pt given written HEP including isometric hip add, SLR, bridging, LAQ - Charges Timed Code Treatment Minutes: 44mins Total Treatment Time: 44mins Procedures billed for this date of service:: EX2, NEURO Assessment: Patient progressing with strengthening and high level balance activity. Patient Education: Home Safety, Activity Modification Short Term Goals Goal #1: pt able to perform initial HEP with cues from caregiver. Goal to be met by: 09/22/18 Progress towards Goal:: Progressing Goal #2: pt amb in dept with rwx with CGA with improved gait sequencing Goal to be met by: 09/22/18 Progress towards Goal:: Met Goal #3: Improve RLE strength 4/5 Goal to be met by: 09/22/18 Progress towards Goal:: Progressing Goal #4: Improve dyn stand balance as noted by tinetti score Goal to be met by: 09/22/18 Progress towards Goal:: Progressing Service Delivery Management Consultant Goals Goal #1: pt amb functional distances with AD independently no LOB Goal to be met by: 10/13/18 Progress towards goal: Progressing Goal #2: Improve dyn stand balance as noted by tinetti score Goal to be met by: 10/13/18 Goal #3: Improve gait speed 0.8 meters/sec to be consistent with community ambulator Goal to be met by: 10/13/18 Goal #4: no reports of falls since eval Goal to be met by: 10/13/18 Progress towards goal: Progressing Plan Dates of Nursing Home Goals: 10/13/18 Expiration date of current Insurance Approval:: 10/13/18 PLAN: Progress strength and balance to increase patients safety and independence with functional activities.
--- NOTE | 2018-09-24 14:43 | RS.OTDNOTE ---
Subjective Date of Note: 09/24/18 Visit #: 7 Number of visits approved by Insurance: 12 Date of Evaluation: 06/13/15 Payer Source: MEDICARE Treatment Diagnosis: (R) side hemiparesis/weakness *Precautions: fall precautions Current Complaints/Gains: Pt states she is now able to angelito the splint x 2 hrs daily and is able to button with her (L) hand. Pain Assessment - Pain Description Pain Description: Tightness, Aching Pain Location: (R) hand with movement Pain Description: 0 Modalities - Treatment Modality: Ultrasound Parameters/Method Applied: .04w/cm2 x10 mins - Hot Pack/Cryotherapy Treatment: Hot Pack Comments:: Prior to PROM Interventions - Exercise/Activities Exercise/Activities/Manual Therapy: Gentle prolonged stretching/MT of digits and wrist performed along with WB act. Pt ed continued on HEP, WB, and use of splint. (B) UE ex's, wrist homicide squad commanding officer, and B UE AROM PRE's ed performed. HOME EXERCISE PROGRAM: AROM stretching/positioning - Objective Findings Objective Findings:: GS 20# - Charges Timed Code Treatment Minutes: 45 Total Treatment Time: 50 Procedures billed for this date of service:: HP US MT Assessment Patient Education: Education of diagnosis, Body/Joint mechanics, Home Exercise Program, Home Safety, Activity Modification, Education of Plan of Care Patient demonstrates compliance with HEP?: Yes Short Term Goals Goal #1: Pt will decrease pain to 5/10 at worst in (R) hand with movement Goal to be met by: 09/19/18 Progress towards goal: Progressing Goal #2: Pt will increase extension in (R) hand fingers by 20 deg. Goal to be met by: 09/19/18 Progress towards goal: Partially Met Comments: met with PROM/splint wear Goal #3: Pt will increase RUE wrist extension 30 deg. Goal to be met by: 09/19/18 Progress towards goal: Progressing Test Center Administrator Goals Goal #1: Pt will decrease pain to 0 in (R) hand with movement Goal to be met by: 10/03/18 Progress towards goal: Progressing Goal #2: Pt will increase extension in (R) hand fingers to 45 deg. Goal to be met by: 10/03/18 Progress towards goal: Progressing Goal #3: Pt will increase RUE wrist extension 45 deg. Goal to be met by: 04/05/19 Progress towards goal: Progressing Plan Dates of Test Center Administrator Goals: 10/03/18 Expiration date of current Insurance Approval:: 10/04/11 PLAN: Continue per POC. Pt donning splint and performing self PROM along with weight bearing of (R) hand.
== END 2018-09-28 23:59 ==
PROVIDERS: ATTEND Family Medicine
DX: I69.320 Aphasia following cerebral infarction (principal); R13.10 Dysphagia, unspecified; I63.9 Cerebral infarction, unspecified; I69.398 Other sequelae of cerebral infarction

== ENCOUNTER 2018-10-22 10:15 | Outpatient (RCR) ==
--- NOTE | 2018-09-30 14:42 | RS.OPPTDN ---
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 *Precautions: fall precautions Interventions - Exercise/Activities/Manual Therapy Exercises/Activities: 25 mins. Bilateral leg press 09/12 reps @ 75#, 09/12reps @ 90#. Sit to stand and gait on level surface in the gym with CGA of 1. Total minutes of Exercise: 25 Manual Therapy: NA Total minutes of Manual Therapy: 0 HOME EXERCISE PROGRAM: pt given written HEP including isometric hip add, SLR, bridging, LAQ - Charges Timed Code Treatment Minutes: 25 Total Treatment Time: 25 Procedures billed for this date of service:: ex 2 Assessment: Abbreviated exercise session due to patient talking with therapy staff about her living arrangement,and also has OT appt. She is able to tolerate the leg press with better control of eccentric motion.Her gait is steadier for functional distances ,along with increased step length. Patient Education: Education of Plan of Care Short Term Goals Goal #1: pt able to perform initial HEP with cues from caregiver. Goal to be met by: 09/22/18 (na today) Comments:: caregiver not present during treatment Goal #2: pt amb in dept with rwx with CGA with improved gait sequencing Goal to be met by: 09/22/18 Progress towards Goal:: Met Goal #3: Improve RLE strength 4/5 Goal to be met by: 09/22/18 Progress towards Goal:: Progressing Goal #4: Improve dyn stand balance as noted by tinetti score Goal to be met by: 09/22/18 Progress towards Goal:: Progressing Temporary Help Agency Referral Clerk Goals Goal #1: pt amb functional distances with AD independently no LOB Goal to be met by: 10/13/18 Progress towards goal: Progressing Goal #2: Improve dyn stand balance as noted by tinetti score Goal to be met by: 10/13/18 Goal #3: Improve gait speed 0.8 meters/sec to be consistent with community ambulator Goal to be met by: 10/13/18 Goal #4: no reports of falls since eval Goal to be met by: 10/13/18 Progress towards goal: Progressing Plan Dates of Temporary Help Agency Referral Clerk Goals: 10/13/18 Expiration date of current Insurance Approval:: na PLAN: Cont. skilled PT to maximize LE strength ,resulting in safer transfers and gait on all surfaces.
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
--- NOTE | 2018-10-01 08:54 | RS.OTDNOTE ---
Subjective Date of Note: 09/30/18 Visit #: 8 Number of visits approved by Insurance: 12 Date of Evaluation: 06/13/15 Payer Source: MEDICARE Treatment Diagnosis: (R) side hemiparesis/weakness *Precautions: fall precautions Current Complaints/Gains: Pt with increased tenderness of dorsal hand/knuckles and presents with increased edema/reddness. Pt is emotional this date and becomes teary eyed at times while in PT/OT. Pain Assessment - Pain Description Pain Description: Tightness, Aching Pain Location: (R) hand with movement Pain Description: 0 Current Pain Intensity: 2 Worst Pain Intensity: 7 Modalities - Hot Pack/Cryotherapy Treatment: Cryotherapy Comments:: CP prior to MT and following 2* increased edema/reddness this date. Interventions - Exercise/Activities Exercise/Activities/Manual Therapy: Gentle prolonged stretching/MT/retrograde massage of digits and wrist performed along with WB act. Pt instructed on CP application and positoning 2* edema. Pt also instructed not to angelito splint with the increased swelling in digits. HOME EXERCISE PROGRAM: AROM stretching/positioning - Objective Findings Objective Findings:: Pt with increased swelling this date and tenderness to massage. Pt instructed to not angelito splint with the noted swelling. - Charges Timed Code Treatment Minutes: 20 Total Treatment Time: 32 Procedures billed for this date of service:: MT CP Assessment Patient Education: Education of diagnosis, Body/Joint mechanics, Home Exercise Program, Home Safety, Activity Modification, Education of Plan of Care Patient demonstrates compliance with HEP?: Yes Short Term Goals Goal #1: Pt will decrease pain to 5/10 at worst in (R) hand with movement Goal to be met by: 09/19/18 Progress towards goal: Regressing Comments: Increased swelling noted Goal #2: Pt will increase extension in (R) hand fingers by 20 deg. Goal to be met by: 09/19/18 Progress towards goal: Regressing Goal #3: Pt will increase RUE wrist extension 30 deg. Goal to be met by: 09/19/18 Progress towards goal: Progressing Jail Goals Goal #1: Pt will decrease pain to 0 in (R) hand with movement Goal to be met by: 10/03/18 Progress towards goal: Regressing Goal #2: Pt will increase extension in (R) hand fingers to 45 deg. Goal to be met by: 10/03/18 Progress towards goal: Regressing Goal #3: Pt will increase RUE wrist extension 45 deg. Goal to be met by: 10/03/18 Progress towards goal: Progressing Plan Dates of Jail Goals: 10/03/18 Expiration date of current Insurance Approval:: 10/03/18 PLAN: Continue x1 tx this wk. OTR to reassess on next visit.
--- NOTE | 2018-10-03 14:57 | RS.CSNOTE ---
PT Case Note Date of Note: 10/03/18 Title of document: PT on hold today. Note: Initiated PT today ,then the Zoe Dunnellon Carpet Inspector arrives for a meeting .Patient is re-scheduled for PT next week.Patient is aware of resuming PT next week. Number of visits approved by Insurance: na Expiration date of current Insurance Approval:: na
--- NOTE | 2018-10-07 11:06 | RS.OPPTDN ---
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 *Precautions: fall precautions Interventions - Exercise/Activities/Manual Therapy Exercises/Activities: 45 mins.total .Tinetti Assessment for Balance and Gait , then bilateral leg press 3/15 reps @ 75#, gait with R/W ,independently for functional distances. Total minutes of Exercise: 45 Manual Therapy: NA Total minutes of Manual Therapy: 0 HOME EXERCISE PROGRAM: pt given written HEP including isometric hip add, SLR, bridging, LAQ - Charges Timed Code Treatment Minutes: 45 Total Treatment Time: 45 Procedures billed for this date of service:: ex,NMR,gt. Assessment: Patient progressed well,met 3/4 STG's,and 3/4 LTG's.She has improved gait speed ,safe transfers and gait . Patient Education: Body/Joint mechanics, Home Exercise Program, Home Safety, Education of Plan of Care Short Term Goals Goal #1: pt able to perform initial HEP with cues from caregiver. Goal to be met by: 09/22/18 (na today) Goal #2: pt amb in dept with rwx with CGA with improved gait sequencing Goal to be met by: 09/22/18 Progress towards Goal:: Met Goal #3: Improve RLE strength 4/5 Goal to be met by: 09/22/18 Progress towards Goal:: Met Goal #4: Improve dyn stand balance as noted by tinetti score Goal to be met by: 09/22/18 Progress towards Goal:: Met Long-Term Goals Goal #1: pt amb functional distances with AD independently no LOB Goal to be met by: 10/13/18 Progress towards goal: Met Goal #2: Improve dyn stand balance as noted by tinetti score Goal to be met by: 10/13/18 Progress towards goal: Met Goal #3: Improve gait speed 0.8 meters/sec to be consistent with community ambulator Goal to be met by: 10/13/18 Progress towards goal: Partially Met Goal #4: no reports of falls since eval Goal to be met by: 10/13/18 Progress towards goal: Met (.76 m/sec (50 feet in 20.27 secs.)) Plan Dates of Fitness Services Manager Goals: 10/13/18 Expiration date of current Insurance Approval:: na PLAN: D/C due to good progress.
--- NOTE | 2018-10-07 11:19 | RS.OTDCSUM ---
Subjective Date of Discharge: 10/03/18 Date of Evaluation: 09/03/18 Number of Visits: 9 Treatment Diagnosis: Right side hemiparesis/weakness Current Level of Function: Pt has difficulty with gripping her walker intermittently due to her Right hand possible tendon tightness. Pt has difficulty with buttons. Pt has tightness and pain in the right hand. Is able to pull her pants up and down at this time. Requires verbal cues to go to the restroom. Current Complaints/Gains: Pt reports she cannot straighten out her fingers. Pain Assessment - Pain Description Pain Description: Tightness, Aching Pain Location: (R) hand with movement Pain Description: 0 Functional Outcome Measures UE Functional Index: 83 - G Codes & Severity Modifier G Codes: . Source of G Code score: . Observation - Observation Posture: Forward Head Handedness: Left Additional Comments: Pt had to switch hands after her CVA and she is now Left handed. Shoulder ROM: Bilaterally WFL's Shoulder Muscle Strength: Left WFL's - Left Shoulder Strength Left Shoulder Flexion: 4+ Good + Left Shoulder Extension: 4+ Good + Left Shoulder Abduction: 4+ Good + Left Shoulder Adduction: 4+ Good + Left Shoulder External Rotation: 4+ Good + Left Shoulder Internal Rotation: 4+ Good + - Right Shoulder Strength Right Shoulder Flexion: 4 Good Right Shoulder Extension: 4 Good Right Shoulder Abduction: 4 Good Right Shoulder Adduction: 4 Good Right Shoulder External Rotation: 4 Good Right Shoulder Internal Rotation: 4 Good Elbow ROM: Bilaterally WFL's Elbow Muscle Strength: Bilaterally WFL's - Left Elbow Strength Left Elbow Extension: 4+ Good + Left Elbow Flexion: 4+ Good + Left Forearm Pronation: 4+ Good + Left Forearm Supination: 4+ Good + - Right Elbow Strength Right Elbow Extension: 4 Good Right Elbow Flexion: 4 Good Right Forearm Pronation: 4- Good- Right Forearm Supination: 4- Good- Wrist ROM: Left WFL's Wrist Muscle Strength: Left WFL's - Right Wrist/Hand ROM Right Wrist Extension: 0 Right Wrist Flexion: 55 Right Forearm Pronation: 90 Right Forearm Supination: 90 Palpation Palpation Findings: Tenderness Sensation Right Upper Extremity: Intact/Normal Left Upper Extremity: Intact/Normal Interventions - Exercise/Activities Exercise/Activities/Manual Therapy: Gentle prolonged stretching/MT/retrograde massage of digits and wrist performed along with WB act. Pt instructed on CP application and positoning 2* edema. Pt also instructed not to angelito splint with the increased swelling in digits. HOME EXERCISE PROGRAM: AROM stretching/positioning - Objective Findings Objective Findings:: Pt with increased swelling this date and tenderness to massage. Pt instructed to not angelito splint with the noted swelling. - Charges Timed Code Treatment Minutes: . Total Treatment Time: . Procedures billed for this date of service:: . Assessment Assessment: Pt has made little access with her extension of the Right digits. Pt had difficulty wearing the splint on her RUE. Pt had bruising on her Right hand and wrist. Pt reports it hurts. Occupational therapy feels that the patient must be seen by an orthopedic surgeon to determine if surgery is required to possibly release tendons of the patients Right digits are tight and have limited functional extension of digits. Pt discharged from occupational therapy at this time due to limited progress. Rehab Potential: Good Problems/Comments: Pt cannot extend the long digit, the ring digit, and the small digit of the RUE hand. Pt is held in flexion at the MCP joints of the RUE. Short Term Goals Goal #1: Pt will decrease pain to 5/10 at worst in (R) hand with movement Goal to be met by: 09/19/18 Progress towards goal: Regressing Goal #2: Pt will increase extension in (R) hand fingers by 20 deg. Goal to be met by: 09/19/18 Progress towards goal: Regressing Goal #3: Pt will increase RUE wrist extension 30 deg. Goal to be met by: 09/19/18 Progress towards goal: Progressing Hair Salon Manager Goals Goal #1: Pt will decrease pain to 0 in (R) hand with movement Goal to be met by: 10/03/18 Progress towards goal: Regressing Goal #2: Pt will increase extension in (R) hand fingers to 45 deg. Goal to be met by: 10/03/18 Progress towards goal: Regressing Goal #3: Pt will increase RUE wrist extension 45 deg. Goal to be met by: 10/03/18 Progress towards goal: Progressing Plan Reason for Discharge:: Lack of Progress Comments: Occupational therapist discussed with patient that she will be discharged today.
--- NOTE | 2018-10-07 12:03 | RS.SLTREAT ---
Speech/Language Treatment Note Date of Note: 10/07/18 Visit #: 3 Time of Treatment: 11:00 Subjective: Pt appeared happy and ready for skilled ST as evidence by smiling and eagerness to begin working. She stated that her inconsistency in speech expression affects her daily communication. Total treatment time: 60 - Short Term Goals Goal #1: Pt to name given words using SFA techniques with 50% acc. Activity/Accuracy: High frequency and low frequency words were presented in picture form. She required 3/5 categories typically to recall the words. Occasionally, she required phonemic cues. Goal #2: Pt to respond to structured questions with 2-4 second delay Goal #3: Pt to demonstrate delayed recall of items with 50% acc. Activity/Accuracy: Recall of words targeted with SFA were completed over five trials. Average of 50% recall with phonemic cueing. - Electrotyper Apprentice Goals Goal #1: Pt to recall words in functional comm with 50% acc Goal #2: Pt to demonst. moderate cognitive deficits w/i struct. tasks Assessment: Use of SFA technique was completed to increase word finding skills. She required frequent repetition of each category to name picture. Occasionally phonemic cueing was required to increase verbal naming of pictures. For delayed recall, categories or phonemic cueing was required to recall items with 50% accuracy on 4/5 trials. On fifth trial, she recalled 2/4 items independently. - Units Charged Speech Therapy: 3 Swallowing Therapy: 0
--- NOTE | 2018-10-07 16:13 | RS.OPPTDC ---
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 pt tinetti balance score , gait speed 0.76 meters/sec, as well as LE strength 4+/5. Current Complaints/Gains: pt reports her legs do feel stronger, and it is easier to get up/down from chair. Functional Outcome Measure Tinetti: 19 - G Codes & Severity Modifier G Codes & Modifier: n/a Source of G Code score: n/a Observation - Observation Posture: Forward Head, Rounded Shoulders, Increased Thoracic Kyphosis Handedness: Right Gait - Gait Pattern Gait Comments: pt continues to amb with rwx with decreased step length, does demonstrate improved posture. pt amb functional distances independently Interventions - Exercise/Activities/Manual Therapy Exercises/Activities: n/a Manual Therapy: NA HOME EXERCISE PROGRAM: pt given written HEP including isometric hip add, SLR, bridging, LAQ - Charges Timed Code Treatment Minutes: n/a Total Treatment Time: n/a Procedures billed for this date of service:: n/a Assessment Assessment: pt has met STG 2, 3, 4 and All LTG's met. pt made significant improvement with balance, strength as well as gait speed. pt improved from 0.47 to 0.76meters/sec, tinetti balance score has improved from 10 to . pt continues with decreased balance and fall risk. Patient Education: Home Exercise Program, Education of Plan of Care Rehab Potential: Good Short Term Goals Goal #1: pt able to perform initial HEP with cues from caregiver. Goal to be met by: 09/22/18 (caregiver not present) Progress towards Goal:: Not Met Goal #2: pt amb in dept with rwx with CGA with improved gait sequencing Goal to be met by: 09/22/18 Progress towards Goal:: Met Goal #3: Improve RLE strength 4/5 Goal to be met by: 09/22/18 Progress towards Goal:: Met Goal #4: Improve dyn stand balance as noted by tinetti score Goal to be met by: 09/22/18 Progress towards Goal:: Met Long-Term Goals Goal #1: pt amb functional distances with AD independently no LOB Goal to be met by: 10/13/18 Progress towards goal: Met Goal #2: Improve dyn stand balance as noted by tinetti score Goal to be met by: 10/13/18 Progress towards goal: Met Goal #3: Improve gait speed 0.8 meters/sec to be consistent with community ambulator Goal to be met by: 10/13/18 Progress towards goal: Met Goal #4: no reports of falls since eval Goal to be met by: 10/13/18 Progress towards goal: Met (.76 m/sec (50 feet in 20.27 secs.)) Plan Comments: pt has reached max rehab potential at this time. pt continues with speech therapy.
--- NOTE | 2018-10-22 11:24 | RS.SLTREAT ---
Speech/Language Treatment Note Date of Note: 10/22/18 Visit #: 4 Time of Treatment: 10:15 Subjective: Pt reported her hands are hurting and she does not feel good. She also stated she felt she had a little progress with her language expression. However, she can tell when she can not retrieve words and the techniques do not typically increase verbal recall. Total treatment time: 45 - Short Term Goals Goal #1: Pt to name given words using SFA techniques with 50% acc. Activity/Accuracy: Pt named items using SFA with 75% accuracy. Goal #2: Pt to respond to structured questions with 2-4 second delay Activity/Accuracy: Pt required verbal repetition 2-3 times to decrease response latency to 1-3 seconds. Goal #3: Pt to demonstrate delayed recall of items with 50% acc. Activity/Accuracy: Pt recalled with 60% accuracy given max verbal cues and verbal repetition. - Longterm Goals Goal #1: Pt to recall words in functional comm with 50% acc Goal #2: Pt to demonst. moderate cognitive deficits w/i struct. tasks Assessment: The patient was assessed with use of SFA without visual cues given SFA techniques and phonemic cueing. Verbal perseveration was noted with previous target on multiple trials. However, error-less training was used to reduce perseverations. Category thinking tasks were presented with chosing one word from a given category. She completed the initial trial to choose the word with 55% accuracy increasing to 67% accuracy on second trial. - Units Charged Speech Therapy: 3 Swallowing Therapy: 0
== END 2018-10-28 23:59 ==
PROVIDERS: ATTEND Family Medicine
DX: R47.01 Aphasia (principal); R13.10 Dysphagia, unspecified; I63.9 Cerebral infarction, unspecified; I69.30 Unspecified sequelae of cerebral infarction; I69.398 Other sequelae of cerebral infarction; R26.89 Other abnormalities of gait and mobility; I69.320 Aphasia following cerebral infarction; R41.841 Cognitive communication deficit; R53.1 Weakness; I69.359 Hemiplegia and hemiparesis following cerebral infarction affecting unspecified side; R26.9 Unspecified abnormalities of gait and mobility

== ENCOUNTER 2018-11-14 10:15 | Outpatient (RCR) ==
--- NOTE | 2018-11-07 11:17 | RS.SLTREAT ---
Speech/Language Treatment Note Date of Note: 11/07/18 Visit #: 5 Time of Treatment: 10:15 Subjective: Pt did not have any new reports. She had better spontaneous verbal fluency and less delay between word finding episodes. Total treatment time: 45 - Short Term Goals Goal #1: Pt to name given words using SFA techniques with 50% acc. Activity/Accuracy: Pt completed two trials with SFA techniques. Initial trial required mild cueing with 50% accuracy. Second trial required minimal cueing with 70% accuracy. Goal #2: Pt to respond to structured questions with 2-4 second delay Activity/Accuracy: Pt responded within 4 seconds on 60% of trials of SFA tasks and category tasks. Goal #3: Pt to demonstrate delayed recall of items with 50% acc. - Alf Goals Goal #1: Pt to recall words in functional comm with 50% acc Goal #2: Pt to demonst. moderate cognitive deficits w/i struct. tasks Assessment: Pt was assessed with independence of using SFA in word finding tasks. She required mild verbal cues initially, however decreased to minimal verbal cues after one trial. For response delay tasks, she typically required 2- 3 times repetition of multiple choice in set of three to respond without delay or verbal perseveration. - Units Charged Speech Therapy: 3 Swallowing Therapy: 0
--- NOTE | 2018-11-14 11:18 | RS.SLTREAT ---
Speech/Language Treatment Note Date of Note: 11/14/18 Visit #: 5 Time of Treatment: 10:15 Subjective: Pt reported having a good day. She was verbal and initiated speech frequently. Mild-moderate episodes with word-finding in spontaneous conversation. Total treatment time: 45 - Short Term Goals Goal #1: Pt to name given words using SFA techniques with 50% acc. Goal #2: Pt to respond to structured questions with 2-4 second delay Activity/Accuracy: Pt responded to structured questions given multiple choice with typical 4-5 second delay. She required 1-2x verbal repetition, visual cues , phonemic cueing or semantic cueing to decrease delayed response. Goal #3: Pt to demonstrate delayed recall of items with 50% acc. Activity/Accuracy: Pt recalled with 60% accuracy within 1 minute delay. - Prison Goals Goal #1: Pt to recall words in functional comm with 50% acc Goal #2: Pt to demonst. moderate cognitive deficits w/i struct. tasks Assessment: Pt was assessed with cognitive tasks for verbal productions and delayed response tasks. She frequently required 1-2x verbal repetition, visual cues, phonemic and semantic cues to respond without delayed response or verbal perseveration. - Units Charged Speech Therapy: 3 Swallowing Therapy: 0
== END 2018-11-28 23:59 ==
PROVIDERS: ATTEND Family Medicine
DX: R41.841 Cognitive communication deficit (principal); R47.01 Aphasia; R13.10 Dysphagia, unspecified; I63.9 Cerebral infarction, unspecified; I69.30 Unspecified sequelae of cerebral infarction; I69.398 Other sequelae of cerebral infarction; R26.89 Other abnormalities of gait and mobility